=== PATIENT | male | born 1960 | race Caucasian/White ===

== ENCOUNTER 2024-06-21 11:30 | Observation (INO) | payer OTHER ==
[2024-06-21 11:54] VITALS: BMI 36.8
[2024-06-21 13:07] LABS: BASO % 0.4 % (0-2.0); EOS % 4.3 % (0-4.5); HEMOGLOBIN 10.5 GM/dL (11.7-16.9); LYMPH % 9.5 % (8-40); MCHC 32.7 g/dl (32.0-35.9); MEAN CELL VOLUME 91.6 fl (80-96); MEAN PLT VOLUME 7.2 fl (7.5-11.1); MONO % 9.1 % (3.8-10.2); NEUT % 76.7 % (42.8-82.8); PLATELET COUNT 271 10^3/uL (134-434); RBC 3.49 M/mm3 (4.00-5.60); RDW 16.6 % (11.9-15.9); WHITE BLOOD COUNT 5.5 K/mm3 (4.0-10.0)
[2024-06-21 13:33] LABS: POTASSIUM 5.4 mmol/L (3.5-5.1)
[2024-06-21 13:35] LABS: CALCIUM 8.8 mg/dL (8.5-10.1)
[2024-06-21 13:36] LABS: ALBUMIN 3.5 g/dl (3.4-5.0)
[2024-06-21 13:39] LABS: CREATININE 1.2 mg/dL (0.55-1.3)
[2024-06-21 13:40] LABS: BILIRUBIN,TOTAL 0.6 mg/dL (0.2-1); TOT PROT 6.6 g/dl (6.4-8.2)
[2024-06-21 13:43] LABS: N-TERMINAL BNP 1762.5 pg/ml (5-125)
[2024-06-21] MEDS ORDERED: FUROSEMIDE 40 MG/4 ML INJECTABLE VIAL ONE (14:25)
[2024-06-21] MEDS: FUROSEMIDE 40 MG/4 ML INJECTABLE VIAL IVPUSH ONE (14:33)
[2024-06-21 19:45] LABS: CHLORIDE 110 mmol/L (98-107); SODIUM 141 mmol/L (136-145)
[2024-06-21 19:47] LABS: ANION GAP 4 mmol/L (4-13); BLOOD UREA NITROGEN 23.7 mg/dL (7-18); CO2 26 mmol/L (21-32); GLUCOSE,RANDOM 80 mg/dL (74-106)
[2024-06-21 19:51] LABS: CREATININE 1.5 mg/dL (0.55-1.3)
[2024-06-21 20:01] LABS: CHOLESTEROL 170 mg/dL (50-200)
[2024-06-21 20:02] LABS: LDL CHOLESTEROL (ONLY SJRH) 111 mg/dL (5-100)
[2024-06-21 20:04] LABS: HDL CHOLESTEROL 53 mg/dL (40-60)
[2024-06-21] MEDS: INSULIN ASPART SLIDING SCALE (NOVOLOG) 1 VIAL SQ SCH (22:31)
[2024-06-21] MEDS: metoPROLOL SUCCINATE 25 MG TAB.SR.24H (FP) PO SCH (22:32)
[2024-06-21] MEDS: SENNOSIDES 8.6MG TABLET (FP) PO SCH (22:33)
[2024-06-21 23:31] LABS: POTASSIUM 5.2 mmol/L (3.5-5.1)
[2024-06-21 23:33] LABS: BLOOD UREA NITROGEN 24.4 mg/dL (7-18); CALCIUM 8.8 mg/dL (8.5-10.1)
[2024-06-21 23:37] LABS: CREATININE 1.5 mg/dL (0.55-1.3)
[2024-06-22 01:41] VITALS: RESP 18
[2024-06-22] MEDS: FUROSEMIDE 40 MG/4 ML INJECTABLE VIAL IVPUSH SCH (06:38)
[2024-06-22 06:45] VITALS: BP 121/66; PULSE 79; TEMP 98
[2024-06-22] MEDS: TAMSULOSIN HCL 0.4 MG CAP PO SCH (10:06)
[2024-06-22 10:10] LABS: HEMATOCRIT 29.8 % (35.4-49); HEMOGLOBIN 10.1 GM/dL (11.7-16.9); MCH 30.4 pg (25.7-33.7); MCHC 33.8 g/dl (32.0-35.9); MEAN CELL VOLUME 89.9 fl (80-96); MEAN PLT VOLUME 7.2 fl (7.5-11.1); PLATELET COUNT 285 10^3/uL (134-434); RBC 3.32 M/mm3 (4.00-5.60); RDW 16.1 % (11.9-15.9); WHITE BLOOD COUNT 5.8 K/mm3 (4.0-10.0)
[2024-06-22] MEDS: ASPIRIN COATED 81 MG TABLET.EC PO SCH (10:13)
[2024-06-22] MEDS: FERROUS SO4 325 MG TABLET (FP) PO SCH (10:13)
[2024-06-22] MEDS: PANTOPRAZOLE 40 MG TABLET PO SCH (10:13)
[2024-06-22 10:33] LABS: POTASSIUM 5.2 mmol/L (3.5-5.1)
[2024-06-22 10:54] LABS: CALCIUM 8.9 mg/dL (8.5-10.1)
[2024-06-22 10:55] LABS: ALBUMIN 3.2 g/dl (3.4-5.0); BLOOD UREA NITROGEN 22.9 mg/dL (7-18)
[2024-06-22 10:58] LABS: CREATININE 1.4 mg/dL (0.55-1.3)
[2024-06-22 11:00] LABS: BILIRUBIN,TOTAL 0.7 mg/dL (0.2-1); TOT PROT 6.1 g/dl (6.4-8.2)
[2024-06-23] MEDS ORDERED: LEVOTHYROXINE NA 50 MCG TABLET (FP) PO SCH (07:00)
== END 2024-06-22 19:22 ==
LOC: JER 11:30 → JERBED 17:50 → J4S 20:59
PROVIDERS: ADMIT Internal Medicine; ATTEND Internal Medicine
PROC: 3E033GC Introduction of Other Therapeutic Substance into Peripheral Vein, Percutaneous Approach (ICD-10-PCS; principal; 2024-06-21)
DX: I27.20 Pulmonary hypertension, unspecified (principal); I50.9 Heart failure, unspecified; D64.9 Anemia, unspecified; N40.0 Benign prostatic hyperplasia without lower urinary tract symptoms; R94.8 Abnormal results of function studies of other organs and systems; K21.9 Gastro-esophageal reflux disease without esophagitis; E11.9 Type 2 diabetes mellitus without complications; S81.802A Unspecified open wound, left lower leg, initial encounter; X58.XXXA Exposure to other specified factors, initial encounter; Y93.9 Activity, unspecified; Z88.0 Allergy status to penicillin; Z88.8 Allergy status to other drugs, medicaments and biological substances; K44.9 Diaphragmatic hernia without obstruction or gangrene; E03.9 Hypothyroidism, unspecified
CPT/HCPCS: 36415; 71046-TC-FY; 80048; 80053; 80061; 82962; 83036; 83880; 84443; 84484; 85025; 85027; 93005; 93010; 93306-TC; 96374; 96376; 99285-25; G0378